=== PATIENT | male | born 1995 | race Two or more races ===

== ENCOUNTER 2017-08-04 15:51 | Inpatient (IN) | payer SELFPAY, OTHER ==
[2017-08-04 17:29] LABS: ADD MAN DIFF? NO; BASO # 0.1 x10^3/uL (0.0-0.2); BASO % 1 % (0-3); EOS # 0.2 x10^3/uL (0.0-0.7); EOS % 1 % (0-3); HEMATOCRIT 43.9 % (39.0-53.0); HEMOGLOBIN 15.1 g/dL (13.0-17.5); LYMPH # 1.7 x10^3/uL (1.0-4.8); LYMPH % 16 % (24-48); MEAN CORPUSCULAR HEMOGLOBIN 31 pg (25-35); MEAN CORPUSCULAR HGB CONC 34 g/dL (31-37); MEAN CORPUSCULAR VOLUME 90 fL (79-100); MONO # 0.8 x10^3/uL (0.0-1.1); MONO % 7 % (0-9); NEUT # 8.1 x10^3uL (1.8-7.7); NEUT % 75 % (31-73); PLATELET COUNT 197 x10^3/uL (140-400); RED CELL DISTRIBUTION WIDTH 12.4 % (11.5-14.5); WHITE BLOOD COUNT 10.8 x10^3/uL (4.0-11.0)
[2017-08-04 17:39] LABS: ANION GAP 12 (6-14); BLOOD UREA NITROGEN 12 mg/dL (8-26); CALCIUM 8.8 mg/dL (8.5-10.1); CARBON DIOXIDE 26 mmol/L (21-32); CHLORIDE 102 mmol/L (98-107); GFR 95.3; GLUCOSE 92 mg/dL (70-99); POTASSIUM 3.3 mmol/L (3.5-5.1); SODIUM 140 mmol/L (136-145)
[2017-08-04 17:40] LABS: INR 1.1 (0.8-1.1); PARTIAL THROMBOPLASTIN TIME 33 SEC (24-38); PROTHROMBIN TIME PATIENT 13.5 SEC (11.7-14.0)
[2017-08-04 17:45] LABS: ALBUMIN 4.1 g/dL (3.4-5.0); ALK PHOS 68 U/L (46-116); ALT (SGPT) 20 U/L (16-63); AST (SGOT) 17 U/L (15-37); DIRECT BILIRUBIN 0.2 mg/dL (0.0-0.2); TOTAL BILIRUBIN 0.7 mg/dL (0.2-1.0); TOTAL PROTEIN 7.5 g/dL (6.4-8.2)
[2017-08-04 17:46] LABS: BILIRUBIN,URINE SMALL (NEG); CLARITY,URINE CLOUDY; COLOR,URINE AMBER; GLUCOSE,URINE NEGATIVE (NEG); NITRITE,URINE NEGATIVE (NEG); PROTEIN,URINE NEGATIVE (NEG-TRACE)
[2017-08-04 17:58] LABS: BACTERIA,URINE 0 /HPF (0-FEW); RBC,URINE 0 /HPF (0-2); WBC,URINE OCC /HPF (0-4)
[2017-08-04] MEDS: IV NORMAL SALINE 1000ML BAG 1,000 ML IV (18:00)
[2017-08-04 18:11] LABS: LIPASE 105 U/L (73-393)
[2017-08-04] MEDS ORDERED: ONDANSETRON PF 4 MG/2 ML VIAL. IV (19:30)
[2017-08-04] MEDS ORDERED: fentaNYL PF VIAL 100 MCG/2 ML VIAL IV (19:30)
[2017-08-04] MEDS: IV DEXTROSE 5 %-0.45 % NACL 1,000 ML IV (19:45)
[2017-08-04 20:45] LABS: HEMOGLOBIN 14.2 g/dL (13.0-17.5)
[2017-08-05 05:12] LABS: ADD MAN DIFF? NO
[2017-08-05 05:39] LABS: ANION GAP 9 (6-14); BLOOD UREA NITROGEN 12 mg/dL (8-26); CALCIUM 8.4 mg/dL (8.5-10.1); CARBON DIOXIDE 27 mmol/L (21-32); CHLORIDE 106 mmol/L (98-107); CREATININE 1.1 mg/dL (0.7-1.3); GFR 85.3; GLUCOSE 94 mg/dL (70-99); POTASSIUM 3.4 mmol/L (3.5-5.1); SODIUM 142 mmol/L (136-145)
[2017-08-05 05:40] LABS: BASO # 0.1 x10^3/uL (0.0-0.2); BASO % 1 % (0-3); EOS # 0.4 x10^3/uL (0.0-0.7); EOS % 4 % (0-3); HEMATOCRIT 40.9 % (39.0-53.0); HEMOGLOBIN 13.8 g/dL (13.0-17.5); LYMPH % 29 % (24-48); MEAN CORPUSCULAR HEMOGLOBIN 31 pg (25-35); MEAN CORPUSCULAR HGB CONC 34 g/dL (31-37); MEAN CORPUSCULAR VOLUME 90 fL (79-100); MONO # 0.9 x10^3/uL (0.0-1.1); MONO % 9 % (0-9); NEUT # 5.8 x10^3uL (1.8-7.7); NEUT % 57 % (31-73); PLATELET COUNT 187 x10^3/uL (140-400); RED BLOOD COUNT 4.53 x10^6/uL (4.30-5.70); RED CELL DISTRIBUTION WIDTH 12.6 % (11.5-14.5); WHITE BLOOD COUNT 10.2 x10^3/uL (4.0-11.0)
[2017-08-05] MEDS: PANTOPRAZOLE 40 MG TABLET.DR. PO (09:30)
[2017-08-05 10:13] LABS: THYROID STIM HORMONE (TSH) 1.353 uIU/mL (0.358-3.74)
[2017-08-05] MEDS ORDERED: SINCALIDE IV (12:30)
[2017-08-05] MEDS ORDERED: NORMAL SALINE IV (12:30)
== END 2017-08-05 14:56 | disposition home or self-care (01) | DRG 378 ==
LOC: ER 15:51 → 5 SOUTH 18:50
DX: K92.0 Hematemesis (principal); Z68.1 Body mass index [BMI] 19.9 or less, adult; E87.6 Hypokalemia; J45.909 Unspecified asthma, uncomplicated; F12.90 Cannabis use, unspecified, uncomplicated; F17.210 Nicotine dependence, cigarettes, uncomplicated; R63.4 Abnormal weight loss; Z82.49 Family history of ischemic heart disease and other diseases of the circulatory system
CPT/HCPCS: 36415; 71046; 76705; 78226; 80048; 80076; 81001; 83690; 84443; 85018; 85025; 85610; 85730; 86850; 86900; 86901; 96374; 96375; A9537; J7030

== ENCOUNTER 2018-04-05 22:01 | Emergency (ER) | payer SELFPAY ==
[2017-08-05 14:34] VITALS: BP 125/77
[~2018-04-05 22:01] MED LIST: VENTOLIN HFA18 GM IH
== END 2018-04-05 22:49 | disposition left against medical advice (07) ==
LOC: ER 22:01
DX: H57.8 Other specified disorders of eye and adnexa (principal); Z53.21 Procedure and treatment not carried out due to patient leaving prior to being seen by health care provider